=== PATIENT | male | born 1960 | race African-American/Black ===

== ENCOUNTER 2016-07-21 23:29 | Emergency (ER) | payer OTHER, MEDICAID ==
[~2016-07-21] VITALS: Ht 177.8 cm; Wt 97.0 kg
[~2016-07-21 23:29] MED LIST: FOLI1CAP16 PO; IBUPROFEN; LIPITOR; METHOCARBAMOL; METO25TA6 PO; MULT-1116 PO; SIMVASTATIN; THIA100T13 PO; VICODIN; [UNRECOGNIZED DRUG - OTHER]
[2016-07-22] MEDS ORDERED: METOCLOPRAMIDE HCL 10MG/2ML VIAL IM ONE (00:45)
[2016-07-22 05:14] VITALS: BP 136/70
== END 2016-07-22 05:20 | disposition home or self-care (01) ==
LOC: ER 23:34
DX: Z76.0 Encounter for issue of repeat prescription (principal); R06.6 Hiccough; J44.9 Chronic obstructive pulmonary disease, unspecified; E78.00 Pure hypercholesterolemia, unspecified; I10 Essential (primary) hypertension; Z79.899 Other long term (current) drug therapy
CPT/HCPCS: 96372; 99283; J2765

== ENCOUNTER 2016-09-06 01:51 | Emergency (ER) | payer OTHER, MEDICAID ==
[~2016-09-06] VITALS: Ht 180.3 cm; Wt 77.0 kg
[2016-09-06] MEDS ORDERED: IPRATROPIUM BROMIDE (0.02%) 0.5MG/2.5ML NEB HHN STA (03:02)
[2016-09-06] MEDS ORDERED: ALBUTEROL (0.083%) 2.5MG/3ML NEB HHN STA (03:02)
[2016-09-06] MEDS ORDERED: SODIUM CHLORIDE 0.9% 1,000 ML IV ONE (03:02)
[2016-09-06] MEDS ORDERED: METHYLPREDNISOLONE SOD SUCC 125 MG/2 ML VIAL IV STA (03:02)
[2016-09-06 03:30] LABS: BASOPHILS % 0.9 % (0.0-2.0); EOSINOPHILS % 0.4 % (0.0-5.0); HEMOGLOBIN. 12.1 g/dL (14.0-18.0); LYMPHOCYTES % 32.8 % (20.0-50.0); MEAN CORPUSCULAR HEMOGLOBIN 29.7 pg (28.0-32.0); MEAN CORPUSCULAR VOLUME 88.2 fL (80.0-94.0); MEAN PLATELET VOLUME 8.2 fl (7.4-10.4); NEUTROPHILS % 52.9 % (40.0-76.0); PLATELET 94 x1000/uL (130-400); RED BLOOD CELL COUNT 4.08 mill/uL (4.7-6.1); RED CELL DISTRIBUTION WIDTH 14.2 % (11.6-14.6)
[2016-09-06 03:45] LABS: CARBON DIOXIDE 26 mEq/L (21-32); CHLORIDE 101 mEq/L (98-107); TROPONIN I 0.06 ng/mL (0.00-0.04)
[2016-09-06 03:50] LABS: ETHANOL BLOOD 328 mg/dL
[2016-09-06 06:36] VITALS: BP 147/89
== END 2016-09-06 06:41 | disposition home or self-care (01) ==
LOC: ER 01:58
DX: F10.129 Alcohol abuse with intoxication, unspecified (principal); J44.1 Chronic obstructive pulmonary disease with (acute) exacerbation; D69.6 Thrombocytopenia, unspecified; I10 Essential (primary) hypertension; E78.00 Pure hypercholesterolemia, unspecified; R06.6 Hiccough; J45.909 Unspecified asthma, uncomplicated; F17.200 Nicotine dependence, unspecified, uncomplicated; Z86.73 Personal history of transient ischemic attack (TIA), and cerebral infarction without residual deficits; Z79.899 Other long term (current) drug therapy
CPT/HCPCS: 36415; 71010; 80053; 84484; 85025; 93005; 94640; 96361; 96374; 99285; G0482; J2930; J7030; J7611; Z7610

== ENCOUNTER 2017-01-19 03:49 | Emergency (ER) | payer BC, MEDICAID, OTHER ==
[~2017-01-19] VITALS: Ht 177.8 cm; Wt 72.0 kg
[2017-01-19] MEDS ORDERED: IBUPROFEN 600MG TABLET PO STA (04:20)
[2017-01-19 08:20] VITALS: BP 125/73
== END 2017-01-19 08:42 | disposition home or self-care (01) ==
LOC: ER 03:59
DX: R07.9 Chest pain, unspecified (principal); R05 Cough
CPT/HCPCS: 71010; 93005; 93971; 99284

== ENCOUNTER 2017-01-30 23:48 | Emergency (ER) | payer MEDICARE, MEDICAID ==
[~2017-01-30] VITALS: Ht 177.8 cm; Wt 77.0 kg
[2017-01-31] MEDS ORDERED: IPRATROPIUM/ALBUTEROL 0.5-3(2.5)MG/3ML NEB HHN ONE (00:30)
[2017-01-31] MEDS ORDERED: ACETAMINOPHEN 325MG TABLET PO ONE (00:30)
[2017-01-31 00:44] LABS: CLARITY URINE CLEAR (CLEAR); COLOR URINE YELLOW (YELLOW); GLUCOSE URINE NEGATIVE (NEGATIVE); KETONES URINE NEGATIVE (NEGATIVE); LEUKOCYTE ESTERASE URINE NEGATIVE (NEGATIVE); NITRITE URINE NEGATIVE (NEGATIVE); OCCULT BLOOD URINE NEGATIVE (NEGATIVE); PROTEIN URINE NEGATIVE (NEGATIVE); SPECIFIC GRAVITY URINE 1.008 (1.005-1.030); UROBILINOGEN URINE 0.2 E.U./dL (0.2-1.0)
[2017-01-31 00:47] LABS: BASOPHILS % 0.9 % (0.0-2.0); EOSINOPHILS % 0.9 % (0.0-5.0); HEMOGLOBIN. 11.3 g/dL (14.0-18.0); LYMPHOCYTES % 39.3 % (20.0-50.0); MEAN CORPUSCULAR HEMOGLOBIN 28.1 pg (28.0-32.0); MEAN CORPUSCULAR VOLUME 84.4 fL (80.0-94.0); MEAN PLATELET VOLUME 7.4 fl (7.4-10.4); MONOCYTES % 12.7 % (2.0-8.0); NEUTROPHILS % 46.2 % (40.0-76.0); PLATELET 117 x1000/uL (130-400); RED BLOOD CELL COUNT 4.03 mill/uL (4.7-6.1); RED CELL DISTRIBUTION WIDTH 16.4 % (11.6-14.6)
[2017-01-31 00:51] LABS: CHLORIDE 100 mEq/L (98-107)
[2017-01-31 00:55] LABS: *AMPHETAMINES SCREEN URINE NEGATIVE (NEGATIVE); *BARBITURATES SCREEN URINE NEGATIVE (NEGATIVE); *BENZODIAZEPINES SCREEN URINE NEGATIVE (NEGATIVE); *COCAINE SCREEN URINE NEGATIVE (NEGATIVE); CANNABINOID URINE SCREEN NEGATIVE (NEGATIVE); METHADONE URINE SCREEN NEGATIVE (NEGATIVE); OPIATES URINE SCREEN NEGATIVE (NEGATIVE); PHENCYCLIDINE URINE SCREEN NEGATIVE (NEGATIVE)
[2017-01-31 01:02] LABS: CARBON DIOXIDE 29 mEq/L (21-32)
[2017-01-31 01:09] LABS: ETHANOL BLOOD 373 mg/dL
[2017-01-31] MEDS ORDERED: KETOROLAC 30MG/ML VIAL IM ONE (03:15)
[2017-01-31 03:19] VITALS: BP 122/78
== END 2017-01-31 03:29 | disposition home or self-care (01) ==
LOC: ER 23:54
DX: R60.1 Generalized edema (principal); R06.02 Shortness of breath; E78.00 Pure hypercholesterolemia, unspecified; J44.9 Chronic obstructive pulmonary disease, unspecified; I10 Essential (primary) hypertension; F10.10 Alcohol abuse, uncomplicated; Y90.8 Blood alcohol level of 240 mg/100 ml or more
CPT/HCPCS: 36415; 71010; 80053; 80305; 81003; 85025; 93971; 94640; 96372; 99285; G0482; J1885; J7620

== ENCOUNTER 2017-05-12 00:37 | Emergency (ER) | payer MEDICARE, MEDICAID ==
[~2017-05-12] VITALS: Ht 172.7 cm; Wt 68.0 kg
[2017-05-12] MEDS ORDERED: IPRATROPIUM BROMIDE (0.02%) 0.5MG/2.5ML NEB HHN STA (09:31)
[2017-05-12] MEDS ORDERED: AZITHROMYCIN 500 MG TABLET PO STA (09:31)
[2017-05-12] MEDS ORDERED: PREDNISONE 20MG TABLET PO STA (09:31)
[2017-05-12] MEDS ORDERED: ALBUTEROL (0.083%) 2.5MG/3ML NEB HHN STA (09:31)
[2017-05-12 13:29] VITALS: BP 124/67
== END 2017-05-12 13:32 | disposition home or self-care (01) ==
LOC: ER 00:37
DX: B34.9 Viral infection, unspecified (principal); J44.9 Chronic obstructive pulmonary disease, unspecified; E78.00 Pure hypercholesterolemia, unspecified; F17.200 Nicotine dependence, unspecified, uncomplicated
CPT/HCPCS: 71045; 93005; 94640; 99284; J7512; J7611

== ENCOUNTER 2017-06-09 23:44 | Emergency (ER) | payer MEDICARE, MEDICAID ==
[~2017-06-09] VITALS: Ht 172.7 cm; Wt 81.0 kg
[2017-06-10] MEDS ORDERED: HYDROCODONE/ACETAMINOPHEN 5/325MG TABLET PO ONE (00:45)
[2017-06-10 00:59] LABS: BASOPHILS % 0.6 % (0.0-2.0); EOSINOPHILS % 0.4 % (0.0-5.0); HEMATOCRIT. 36.4 % (42.0-52.0); HEMOGLOBIN. 12.4 g/dL (14.0-18.0); LYMPHOCYTES % 39.2 % (20.0-50.0); MEAN CORPUSCULAR HEMOGLOBIN 29.5 pg (28.0-32.0); MEAN PLATELET VOLUME 7.9 fl (7.4-10.4); MONOCYTES % 10.5 % (2.0-8.0); NEUTROPHILS % 49.3 % (40.0-76.0); PLATELET 110 x1000/uL (130-400); RED BLOOD CELL COUNT 4.18 mill/uL (4.7-6.1); RED CELL DISTRIBUTION WIDTH 14.9 % (11.6-14.6)
[2017-06-10 01:11] LABS: CHLORIDE 99 mEq/L (98-107)
[2017-06-10 02:36] VITALS: BP 117/57
== END 2017-06-10 02:39 | disposition home or self-care (01) ==
LOC: ER 23:44
DX: R07.9 Chest pain, unspecified (principal); R06.02 Shortness of breath; I10 Essential (primary) hypertension; J45.909 Unspecified asthma, uncomplicated; F10.229 Alcohol dependence with intoxication, unspecified; F17.200 Nicotine dependence, unspecified, uncomplicated; Z86.73 Personal history of transient ischemic attack (TIA), and cerebral infarction without residual deficits
CPT/HCPCS: 36415; 71045; 80053; 83690; 84484; 85025; 93005; 99285